=== PATIENT | male | born 1950 | race Hispanic/Latino ===

== ENCOUNTER → 2020-09-27 | Outpatient (CLI) | payer OTHER ==
[~2020-09-27] MED LIST: AEC81 PO; ATOR40TA71 PO; CARV25TA PO; ENAL2.5T16 PO; FAMO40TA7 PO; FURO80TA3 PO; HUMULIN SQ; HYDR-4060 PO; METH750T3 PO; PANT40TA54 PO; POTA-79 PO; SPIR25TA6 PO; SUCR1TAB2 PO; ZOLP10TA6 PO; [UNRECOGNIZED DRUG - MIXTURE] PO
== END | disposition home or self-care (01) ==
LOC: SHCH 08:08
PROVIDERS: ATTEND Internal Medicine Cardiovascular Disease
DX: I71.4 Abdominal aortic aneurysm, without rupture (principal)
CPT/HCPCS: 93978

== ENCOUNTER → 2021-02-11 | Outpatient (CLI) | payer OTHER ==
[~2021-02-11] MED LIST changes: +METH-812 PO; -METH750T3 PO
== END | disposition home or self-care (01) ==
LOC: RAH 09:42
PROVIDERS: ATTEND Internal Medicine Gastroenterology
DX: K31.84 Gastroparesis (principal); R11.2 Nausea with vomiting, unspecified; R10.12 Left upper quadrant pain
CPT/HCPCS: 78264; A9541

== ENCOUNTER 2024-04-13 06:46 | Day surgery (SDC) | payer OTHER ==
[2024-04-12 11:10] LABS: CREATININE 1.3 mg/dL (0.5-1.3)
[2024-04-12 11:12] LABS: BASOPHILS # (AUTO) 0.06 K/uL (0.00-0.20); BASOPHILS % (AUTO) 0.5 % (0.0-5.0); EOSINOPHILS # (AUTO) 0.48 K/uL (0.00-0.70); EOSINOPHILS % (AUTO) 4.4 % (0.0-8.0); HEMATOCRIT 33.8 % (42-54); IMMATURE GRANULOCYTE ABSOLUTE 0.05 K/uL (0-1); LYMPHOCYTES # (AUTO) 1.8 K/uL (1.0-4.8); LYMPHOCYTES % (AUTO) 16.7 % (21.0-51.0); MEAN CORPUSCULAR HEMOGLOBIN 28.6 pg (27.0-33.0); MEAN CORPUSCULAR HGB CONC 33.1 g/dL (32.0-36.0); MEAN CORPUSCULAR VOLUME 86.4 fL (79-99); MONOCYTES # (AUTO) 1.3 K/uL (0.1-1.0); MONOCYTES % (AUTO) 11.7 % (3.0-13.0); NEUTROPHILS # (AUTO) 7.3 K/uL (1.8-7.7); NEUTROPHILS % (AUTO) 66.2 % (40.0-77.0); PLATELET COUNT (AUTO) 138 K/uL (130-400); RED BLOOD CELL COUNT(AUTO) 3.91 MIL/uL (4.50-6.20)
[2024-04-12 11:20] LABS: INR <= 0.93 (0.85-1.15); PROTHROMBIN TIME 10.7 SEC (9.6-11.6)
[2024-04-12 11:21] LABS: PARTIAL THROMBOPLASTIN TIME 26.2 SEC (26.3-35.5)
[2024-04-12 11:52] VITALS: BP 119/55; PULSE 68; RESP 17
[2024-04-13] VITALS (9 sets, daily range): BP systolic 100–123; BP diastolic 42–69; PULSE 71–91; RESP 14–17
[~2024-04-13] VITALS: Ht 180.3 cm; Wt 74.0 kg
[~2024-04-13 06:46] MED LIST changes: -ENAL2.5T16 PO; +ENAL2.5T71 PO; +POTA-364 PO; -POTA-79 PO
[2024-04-13] MEDS ORDERED: METO-391 PO (08:16)
[2024-04-13] MEDS ORDERED: NITR0.4T50 SL (08:16)
[2024-04-13] MEDS ORDERED: FURO40TA5 PO (08:16)
[2024-04-13] MEDS ORDERED: EMPA25TA PO (08:16)
[2024-04-13] MEDS ORDERED: APIX5TAB PO (08:16)
[2024-04-13] MEDS ORDERED: DIGO0.12 PO (08:16)
[2024-04-13] MEDS ORDERED: SACU1TAB7 PO (08:16)
[2024-04-13] MEDS ORDERED: ATOR-2 PO (08:16)
[2024-04-13] MEDS ORDERED: TRAZ150T79 PO (08:16)
[2024-04-13] MEDS ORDERED: INSU100V51 SQ (08:16)
[2024-04-13] MEDS ORDERED: ISOS20TA85 PO (08:16)
[2024-04-13] MEDS: 0.9%NACL 1000ML 1,000 ML IV ONE (08:28)
[2024-04-13] MEDS ORDERED: MIDAZOLAM HCL 1 MG/ML 2ML VIAL ONE ×5 (09:02→10:48)
[2024-04-13] MEDS ORDERED: BUPIVACAINE/PF 0.25% 30ML VIAL IJ ONE (09:02)
[2024-04-13] MEDS ORDERED: LIDOCAINE HCL 1% MDV 50ML VIAL ONE (09:02)
[2024-04-13] MEDS ORDERED: MEPERIDINE-PF 25 MG/ML SYG ONE ×5 (09:02→10:48)
[2024-04-13] MEDS ORDERED: VANCOMYCIN 1G/250ML KIT 250 ML IV ONE (09:06)
[2024-04-13] MEDS ORDERED: THROMBIN-JMI 5000 UNIT/VIAL TP ONE (10:51)
[2024-04-13] MEDS ORDERED: BACITRACIN 1 EACH PACKET TP ONE (11:03)
[2024-04-13] MEDS ORDERED: SULF1TAB42 PO (11:22)
[2024-04-13] MEDS ORDERED: TRAM50TA4 PO (11:22)
[2024-04-13] MEDS ORDERED: ACETAMINOPHEN WITH CODEINE 1 TAB TAB PO PRN (11:30)
[2024-04-13] MEDS ORDERED: ACETAMINOPHEN 500 MG TABLET PO PRN (11:30)
== END 2024-04-13 14:00 | disposition home or self-care (01) ==
LOC: DAH 06:46
PROVIDERS: ATTEND Internal Medicine Cardiovascular Disease
DX: Z45.02 Encounter for adjustment and management of automatic implantable cardiac defibrillator (principal); I25.5 Ischemic cardiomyopathy; I48.0 Paroxysmal atrial fibrillation; I25.10 Atherosclerotic heart disease of native coronary artery without angina pectoris; I11.0 Hypertensive heart disease with heart failure; I50.22 Chronic systolic (congestive) heart failure; I25.2 Old myocardial infarction; E11.9 Type 2 diabetes mellitus without complications; Z79.01 Long term (current) use of anticoagulants; Z79.899 Other long term (current) drug therapy; Z86.010 Personal history of colon polyps; Z98.890 Other specified postprocedural states
CPT/HCPCS: 80048; 85025; 85610; 85730; 36415; 93005; 33264; 33218; 82948 ×2; C1882; J7030; J0665; J2250 ×5; J3370; J3490 ×2; J2175 ×5; A4215; A6251; A4222; A4221; A4663; A4216; A6258 ×2; A4606; A4223 ×3; 99156; 99157

== ENCOUNTER 2024-07-07 11:22 | Inpatient (IN) | payer OTHER ==
[~2024-07-07] VITALS: Ht 154.9 cm; Wt 93.8 kg
[2024-07-07] VITALS (31 sets, daily range): BP systolic 64–122; BP diastolic 27–76; PULSE 60–105; RESP 7–19; O2SAT 99
[~2024-07-07 11:22] MED LIST changes: -AEC81 PO; +APIX5TAB PO; +ATOR-2 PO; -ATOR40TA71 PO; -CARV25TA PO; +DIGO0.12 PO; +EMPA25TA PO; -ENAL2.5T71 PO; -FAMO40TA7 PO; +FURO40TA5 PO; -FURO80TA3 PO; -HUMULIN SQ; -HYDR-4060 PO; +INSU100V51 SQ; +ISOS20TA85 PO; -METH-812 PO; +METO-391 PO; +NITR0.4T50 SL; -PANT40TA54 PO; -POTA-364 PO; +SACU1TAB7 PO; -SPIR25TA6 PO; -SUCR1TAB2 PO; +SULF1TAB42 PO; +TRAM50TA4 PO; +TRAZ150T79 PO; -ZOLP10TA6 PO; -[UNRECOGNIZED DRUG - MIXTURE] PO
[2024-07-07] MEDS ORDERED: KCL 20 MEQ ERTAB PO PRN ×2 (17:30→18:30)
[2024-07-07] MEDS ORDERED: POTASSIUM CHLORIDE 20MEQ/100ML 100 ML IV PRN ×2 (17:30→18:30)
[2024-07-07] MEDS ORDERED: NITROGLYCERIN 0.4 MG SL TAB SL PRN (17:30)
[2024-07-07] MEDS ORDERED: MAGNESIUM 2GM PREMIX 50ML 50 ML IV PRN (17:30)
[2024-07-07] MEDS ORDERED: POTASSIUM CHLORIDE 10% ELIXIR 20 MEQ/15 ML UDCUP PO PRN ×2 (17:30→18:30)
[2024-07-07 18:02] LABS: ALBUMIN 2.9 g/dL (3.5-5.0); BILIRUBIN,TOTAL 0.3 mg/dL (0.2-1.0); CREATININE 1.4 mg/dL (0.5-1.3); POTASSIUM 4.3 mmol/L (3.5-5.1); TOTAL PROTEIN, SERUM 5.9 g/dL (6.0-8.3)
[2024-07-07] MEDS: HEParin 5,000 UNIT VIAL IV PRN (18:22)
[2024-07-07] MEDS ORDERED: GLUCAGON 1MG KIT 1 MG ML IM PRN (18:30)
[2024-07-07] MEDS ORDERED: POTASSIUM CHLORIDE 10MEQ/100ML 100 ML IV PRN (18:30)
[2024-07-07] MEDS ORDERED: DEXTROSE 50%-WATER 50 ML DISP.SYRIN IV PRN (18:30)
[2024-07-07 19:14] LABS: HEMATOCRIT 35.7 % (42-54); MEAN CORPUSCULAR HEMOGLOBIN 28.1 pg (27.0-33.0); MEAN CORPUSCULAR HGB CONC 33.3 g/dL (32.0-36.0); MEAN CORPUSCULAR VOLUME 84.2 fL (79-99); RED BLOOD CELL COUNT(AUTO) 4.24 MIL/uL (4.50-6.20); RED CELL DISTRIBUTION WIDTH 14.4 % (11.0-15.5); WHITE BLOOD COUNT (AUTO) 13.5 K/uL (4.8-10.8)
[2024-07-07] MEDS: FAMOTIDINE 20MG VIAL IV SCH (20:51)
[2024-07-07] MEDS: FUROSEMIDE 40 MG TABLET PO SCH (20:51)
[2024-07-07] MEDS: SACUBITRIL/VALSARTAN 1 EACH TABLET PO SCH (20:51)
[2024-07-07] MEDS: TICAGrelor 90 MG TABLET PO SCH (20:51)
[2024-07-07] MEDS: trAZOdone HCL 50 MG TAB PO SCH (20:52)
[2024-07-07] MEDS: INSULIN humuLIN R 100 UNIT/ML 3ML SQ SCH (20:52)
[2024-07-07] MEDS: METOPROLOL TARTRATE 25 MG TAB PO SCH (20:52)
[2024-07-07] MEDS ORDERED: ATORVASTATIN 40 MG TABLET PO SCH (21:00)
[2024-07-07] MEDS: HEParin 25,000 UNITS/250ML D5W 250 ML IV SCH (21:01)
[2024-07-08] VITALS (56 sets, daily range): BP systolic 69–119; BP diastolic 38–98; PULSE 61–104; RESP 6–23; O2SAT 96–99
[2024-07-08 03:59] LABS: ABG BASE EXCESS -1.9 mmol/L (-2.0-3.0); ABG HCO3 21.8 mmol/L (21.0-28.0); ABG OXYGEN SATURATION 97.1 % (94.0-98.0); ABG PCO2 34 mmHg (35-48); ABG PH 7.422 (7.350-7.450); PO2, ARTERIAL BG 89.9 mmHg (83.0-108.0); VENT MODE, BG ROOM AIR (ROOM AIR)
[2024-07-08 06:42] LABS: HEMATOCRIT 35.3 % (42-54); MEAN CORPUSCULAR HEMOGLOBIN 28.2 pg (27.0-33.0); MEAN CORPUSCULAR HGB CONC 33.1 g/dL (32.0-36.0); MEAN CORPUSCULAR VOLUME 85.1 fL (79-99); RED BLOOD CELL COUNT(AUTO) 4.15 MIL/uL (4.50-6.20); RED CELL DISTRIBUTION WIDTH 14.6 % (11.0-15.5); WHITE BLOOD COUNT (AUTO) 12.5 K/uL (4.8-10.8)
[2024-07-08 06:54] LABS: INR 1.02 (0.85-1.15)
[2024-07-08 06:55] LABS: ALBUMIN 2.9 g/dL (3.5-5.0); BILIRUBIN,TOTAL 0.5 mg/dL (0.2-1.0); CREATININE 1.5 mg/dL (0.5-1.3); MAGNESIUM 1.9 mg/dL (1.80-2.40); PARTIAL THROMBOPLASTIN TIME 55.5 SEC (26.3-35.5); POTASSIUM 4.6 mmol/L (3.5-5.1); TOTAL PROTEIN, SERUM 6.2 g/dL (6.0-8.3)
[2024-07-08] MEDS: EMPAGLIFLOZIN 25MG TABLET PO SCH (09:00)
[2024-07-08] MEDS: ISOSORBIDE MONONITRATE 20 MG TABLET PO SCH (09:07)
[2024-07-08] MEDS: ASPIRIN 81MG CHEW TAB PO SCH (09:08)
[2024-07-08] MEDS: ATORVASTATIN 40 MG TABLET PO SCH (09:08)
[2024-07-08 09:20] LABS: CHOLESTEROL 136 mg/dL (<200); HDL CHOLESTEROL 55 mg/dL (29-71); LDL DIRECT 68 mg/dL (0-99); TRIGLYCERIDES 101 mg/dL (30-200)
[2024-07-08] MEDS ORDERED: HEParin 10,000 UNIT/10ML (1,000 UNIT/ML) VIAL ONE (11:33)
[2024-07-08] MEDS ORDERED: NITROGLYCERIN 50MG VIAL ONE (11:33)
[2024-07-08] MEDS ORDERED: HEParin-NS 1,000 UNIT/500 ML 1,000 ML IV ONE (11:33)
[2024-07-08] MEDS ORDERED: IOHEXOL 350 MG/ML 100ML INFUS..BTL IV ONE (11:33)
[2024-07-08] MEDS ORDERED: LIDOCAINE HCL 400MG/20ML VIAL ONE (11:33)
[2024-07-08] MEDS ORDERED: MIDAZOLAM HCL 1 MG/ML 2ML VIAL ONE (11:46)
[2024-07-08] MEDS ORDERED: FENTanyl CITRate PF 50 MCG/1 ML 2ML VIAL ONE (11:46)
[2024-07-08] MEDS ORDERED: BIVALIRUDIN 250 MG/VIAL IV ONE (11:59)
[2024-07-08] MEDS: MAGNESIUM 2GM PREMIX 50ML 50 ML IV PRN (13:05)
[2024-07-08] MEDS ORDERED: FERR-72 PO (18:43)
[2024-07-08] MEDS ORDERED: CALC-1009 PO (18:43)
[2024-07-08] MEDS ORDERED: MELO-106 PO (18:43)
[2024-07-08] MEDS ORDERED: AMOX1TAB16 PO (18:43)
[2024-07-08] MEDS ORDERED: PRED20TA3 PO (18:43)
[2024-07-08] MEDS ORDERED: FURO20TA4 PO (18:49)
[2024-07-08] MEDS ORDERED: POTA-202 PO (18:49)
[2024-07-09] VITALS (88 sets, daily range): BP systolic 90–120; BP diastolic 43–60; PULSE 67–99; RESP 6–22; O2SAT 95–98
[2024-07-09 05:12] LABS: CREATININE 1.9 mg/dL (0.5-1.3); POTASSIUM 4.1 mmol/L (3.5-5.1)
[2024-07-09] MEDS ORDERED: POTASSIUM CHLORIDE 10MEQ SR TAB PO PRN (06:30)
[2024-07-09] MEDS: SACUBITRIL/VALSARTAN 1 EACH TABLET PO ONE (08:52)
[2024-07-09] MEDS: FUROSEMIDE 40 MG TABLET PO SCH (09:00)
[2024-07-09] MEDS ORDERED: 0.9% NACL 250ML 250 ML IV SCH (15:00)
[2024-07-09] MEDS: FAMOTIDINE 20MG VIAL IV SCH (20:59)
[2024-07-10 00:17] VITALS: BP 103/61; PULSE 83; RESP 18
[2024-07-10 04:24] VITALS: BP 112/76; PULSE 74; RESP 18
[2024-07-10 08:00] VITALS: BP 108/59; PULSE 65; RESP 16; O2SAT 98
[2024-07-10 12:28] VITALS: BP 89/54; PULSE 74; RESP 16
[2024-07-10 16:26] VITALS: BP 93/55; PULSE 72; RESP 16
[2024-07-10 19:44] VITALS: BP 108/52; PULSE 75; RESP 18
[2024-07-11] VITALS (9 sets, daily range): BP systolic 106–121; BP diastolic 54–67; PULSE 67–97; RESP 16–18; O2SAT 96–97
[2024-07-11 03:50] LABS: BASOPHILS # (AUTO) 0.04 K/uL (0.00-0.20); BASOPHILS % (AUTO) 0.4 % (0.0-5.0); EOSINOPHILS # (AUTO) 0.27 K/uL (0.00-0.70); EOSINOPHILS % (AUTO) 2.5 % (0.0-8.0); HEMATOCRIT 30.2 % (42-54); IMMATURE GRANULOCYTE ABSOLUTE 0.07 K/uL (0-1); LYMPHOCYTES # (AUTO) 1.5 K/uL (1.0-4.8); LYMPHOCYTES % (AUTO) 13.9 % (21.0-51.0); MEAN CORPUSCULAR HEMOGLOBIN 28.2 pg (27.0-33.0); MEAN CORPUSCULAR HGB CONC 33.4 g/dL (32.0-36.0); MEAN CORPUSCULAR VOLUME 84.4 fL (79-99); MONOCYTES # (AUTO) 1.1 K/uL (0.1-1.0); MONOCYTES % (AUTO) 9.9 % (3.0-13.0); NEUTROPHILS % (AUTO) 72.7 % (40.0-77.0); PLATELET COUNT (AUTO) 224 K/uL (130-400); RED BLOOD CELL COUNT(AUTO) 3.58 MIL/uL (4.50-6.20); RED CELL DISTRIBUTION WIDTH 14.2 % (11.0-15.5)
[2024-07-11 04:08] LABS: PHOSPHORUS 3.8 mg/dL (2.5-4.9)
[2024-07-12 03:53] VITALS: BP 114/61; PULSE 83; RESP 16
[2024-07-12 03:57] LABS: BASOPHILS # (AUTO) 0.03 K/uL (0.00-0.20); BASOPHILS % (AUTO) 0.3 % (0.0-5.0); EOSINOPHILS # (AUTO) 0.25 K/uL (0.00-0.70); EOSINOPHILS % (AUTO) 2.2 % (0.0-8.0); HEMATOCRIT 31.1 % (42-54); IMMATURE GRANULOCYTE ABSOLUTE 0.06 K/uL (0-1); LYMPHOCYTES # (AUTO) 1.5 K/uL (1.0-4.8); LYMPHOCYTES % (AUTO) 12.9 % (21.0-51.0); MEAN CORPUSCULAR HGB CONC 33.4 g/dL (32.0-36.0); MEAN CORPUSCULAR VOLUME 83.8 fL (79-99); MONOCYTES # (AUTO) 1.2 K/uL (0.1-1.0); MONOCYTES % (AUTO) 10.4 % (3.0-13.0); NEUTROPHILS # (AUTO) 8.3 K/uL (1.8-7.7); NEUTROPHILS % (AUTO) 73.7 % (40.0-77.0); PLATELET COUNT (AUTO) 240 K/uL (130-400); RED BLOOD CELL COUNT(AUTO) 3.71 MIL/uL (4.50-6.20); RED CELL DISTRIBUTION WIDTH 14.5 % (11.0-15.5); WHITE BLOOD COUNT (AUTO) 11.3 K/uL (4.8-10.8)
[2024-07-12 04:26] LABS: ALBUMIN 2.8 g/dL (3.5-5.0); BILIRUBIN,TOTAL 0.3 mg/dL (0.2-1.0); CREATININE 1.6 mg/dL (0.5-1.3); MAGNESIUM 1.6 mg/dL (1.80-2.40); POTASSIUM 3.9 mmol/L (3.5-5.1); TOTAL PROTEIN, SERUM 5.8 g/dL (6.0-8.3)
[2024-07-12 07:00] VITALS: BP 112/59; PULSE 69; RESP 17
[2024-07-12 07:40] VITALS: O2SAT 97
[2024-07-12 08:55] LABS: CREATININE,URINE RANDOM 74.78 mg/dL (30-135)
[2024-07-12 11:00] VITALS: BP 103/63; PULSE 83; RESP 17
[2024-07-12] MEDS ORDERED: TICA90TA PO (14:30)
[2024-07-12] MEDS ORDERED: ASPI-1005 PO (14:30)
[2024-07-12] MEDS ORDERED: FURO40TA7 PO (14:30)
[2024-07-12] MEDS ORDERED: METO25 PO (14:30)
== END 2024-07-12 16:55 | disposition home or self-care (01) | DRG 280 ==
LOC: 2BH 16:31 → 2AH 07-09 12:15
PROVIDERS: ADMIT Internal Medicine; ATTEND Internal Medicine
PROC: 4A023N7 Measurement of Cardiac Sampling and Pressure, Left Heart, Percutaneous Approach (ICD-10-PCS; principal; 2024-07-08)
PROC: B2181ZZ Fluoroscopy of Left Internal Mammary Bypass Graft using Low Osmolar Contrast (ICD-10-PCS; 2024-07-08)
PROC: B2131ZZ Fluoroscopy of Multiple Coronary Artery Bypass Grafts using Low Osmolar Contrast (ICD-10-PCS; 2024-07-08)
PROC: B3171ZZ Fluoroscopy of Left Internal Carotid Artery using Low Osmolar Contrast (ICD-10-PCS; 2024-07-08)
DX: I21.09 ST elevation (STEMI) myocardial infarction involving other coronary artery of anterior wall (principal); I50.43 Acute on chronic combined systolic (congestive) and diastolic (congestive) heart failure; I25.810 Atherosclerosis of coronary artery bypass graft(s) without angina pectoris; I13.0 Hypertensive heart and chronic kidney disease with heart failure and stage 1 through stage 4 chronic kidney disease, or unspecified chronic kidney disease; E46 Unspecified protein-calorie malnutrition; N17.9 Acute kidney failure, unspecified; I25.110 Atherosclerotic heart disease of native coronary artery with unstable angina pectoris; E11.22 Type 2 diabetes mellitus with diabetic chronic kidney disease; Z68.39 Body mass index [BMI] 39.0-39.9, adult; Z53.20 Procedure and treatment not carried out because of patient's decision for unspecified reasons; N18.30 Chronic kidney disease, stage 3 unspecified; J44.9 Chronic obstructive pulmonary disease, unspecified; I48.0 Paroxysmal atrial fibrillation; I25.5 Ischemic cardiomyopathy; F41.9 Anxiety disorder, unspecified; F32.A Depression, unspecified; I08.1 Rheumatic disorders of both mitral and tricuspid valves; E78.5 Hyperlipidemia, unspecified; E88.09 Other disorders of plasma-protein metabolism, not elsewhere classified; F17.210 Nicotine dependence, cigarettes, uncomplicated; E78.00 Pure hypercholesterolemia, unspecified; R53.81 Other malaise; K21.9 Gastro-esophageal reflux disease without esophagitis; I95.9 Hypotension, unspecified; Z95.1 Presence of aortocoronary bypass graft; Z95.810 Presence of automatic (implantable) cardiac defibrillator; Z79.899 Other long term (current) drug therapy; Z79.84 Long term (current) use of oral hypoglycemic drugs
CPT/HCPCS: 36415; 36600; 71045; 76770; 80048; 80053; 80061; 82306; 82570; 82607; 82803; 82948; 83036; 83540; 83550; 83735; 83880; 84100; 84145; 84300; 84443; 84484; 85025; 85027; 85610; 85730; 93005; 93455; 99156; 99157; C1769; C1894; G0378; J0583; J1644; J1815; J2250; J3010; J3475; J3490; Q9967; Q9965